=== PATIENT | male | born 1930 | race Caucasian/White ===

== ENCOUNTER 2016-07-23 22:03 | Emergency (ER) | payer MEDICARE ==
[2016-07-23 22:47] VITALS: BP 152/77
[2016-07-23] MEDS ORDERED: Ketorolac 60 MG/2 ML SDV IM ONE (23:24)
[2016-07-23] MEDS ORDERED: Cyclobenzaprine 10 MG Tab PO ONE (23:25)
--- NOTE | 2016-07-23 23:25 | EDM.PDOC ---
ED HPI GENERAL MEDICAL PROBLEM - General Chief Complaint: General Stated Complaint: PAIN IN BACK OF NECK Time Seen by Provider: 07/23/16 23:25 Source of Information: Reports: Patient, Family History Limitations: Reports: No limitations - History of Present Illness INITIAL COMMENTS - FREE TEXT/NARRATIVE: pt wokeup wih severe neck pain. If he lies still he is ok otherwise he has severe sharp pain. Onset: today, other ( Pt woke up with the pain, ) Duration: Hour(s):, Waxing/waning Location: Reports: neck Quality: Reports: Sharp, Stabbing Associated Symptoms: Reports: other (pt has no pain going down the arms. ) neck Pain Score (Numeric/FACES): 10 - Related Data Allergies Allergy/AdvReac Type Severity Reaction Status Date / Time menthol Allergy Rash Verified 07/23/16 23:00 Home Meds: Home Meds Metoprolol Tartrate [Lopressor] 12.5 mg PO DAILY 02/01/14 [History] atorvaSTATin [Lipitor] 10 mg PO DAILY 02/01/14 [History] Aspirin [Jina Chewable Aspirin] 1 tab PO DAILY 10/23/14 [History] Sennosides [Senna] 8.6 mg PO DAILY PRN 10/23/14 [History] Warfarin [Coumadin] 1 tab PO ASDIRECTED 10/23/14 [History] Past Medical History HEENT History: Reports: Cataract, Macular degeneration Cardiovascular History: Reports: High cholesterol, ID Other Cardiovascular History: aoritc valve repair, patched valve Respiratory History: Reports: None Musculoskeletal History: Reports: None Neurological History: Reports: None Oncologic (Cancer) History: Reports: None - Past Surgical History HEENT Surgical History: Reports: Eye surgery, Naso-sinus surgery Cardiovascular Surgical History: Reports: Coronary artery stent, Valve replacement GI Surgical History: Reports: Hernia, inguinal, Hernia repair/other Male Surgical History: Reports: None Social & Family History - Tobacco Use Smoking Status *Q: Former Smoker Years of Tobacco use: 23 Used Tobacco, but Quit: Yes Month Tobacco Last Used: 1974 Second Hand Smoke Exposure: No - Caffeine Use Caffeine Use: Reports: Coffee - Alcohol Use Days Per Week of Alcohol Use: 7 Number of Drinks Per Day: 1 Total Drinks Per Week: 7 - Recreational Drug Use Recreational Drug Use: No ED ROS GENERAL - Review of Systems Review Of Systems: See Below Constitutional: Reports: no symptoms HEENT: Reports: No symptoms Respiratory: Reports: No Symptoms Cardiovascular: Reports: No symptoms Endocrine: Reports: no symptoms GI/Abdominal: Reports: No symptoms : Reports: no symptoms Musculoskeletal: Reports: other ( severe pain in the cervical spine. ) Skin: Reports: no symptoms Neurological: Reports: No Symptoms ED EXAM, GENERAL - Physical Exam Exam: See Below Free Text/Narrative:: Pt arrived with pain the post cervical area more on the rt than the left. Exam Limited By: No limitations General Appearance: alert, anxious, moderate distress Ears: normal TMs Nose: normal inspection Throat/Mouth: Normal inspection Head: atraumatic Neck: other (marked discomfort in the cervical spine. Pt has alot of muscle spasm present, very tender to palpate. ) Respiratory/Chest: no respiratory distress Cardiovascular: regular rate, rhythm GI/Abdominal: soft, non tender (Male) Exam: Deferred Rectal (Males) Exam: Deferred Back Exam: normal inspection Extremities: normal inspection Course - Vital Signs Last Recorded V/S: Last Vital Signs Temp 36.6 C 07/23/16 23:13 Pulse 76 07/23/16 23:13 Resp 16 07/23/16 23:13 BP 152/77 H 07/23/16 23:13 Pulse Ox 97 07/23/16 23:13 - Orders/Labs/Meds Orders: Active Orders 24 hr Category Date Time Status Cervical Spine Min 4V [CR] Stat Exams 07/23/16 23:25 Taken Meds: Medications Discontinued Medications Generic Name Dose Route Start Last Admin Trade Name Freq PRN Reason Stop Dose Admin Cyclobenzaprine HCl 5 mg 07/23/16 23:25 07/23/16 23:45 Flexeril PO 07/23/16 23:26 5 mg ONETIME ONE Administration Ketorolac Tromethamine 30 mg 07/23/16 23:24 07/23/16 23:47 Toradol IM 07/23/16 23:25 30 mg ONETIME ONE Administration - Re-Assessments/Exams Free Text/Narrative Re-Assessment/Exam: 07/23/16 23:55 cervical spine shows marked degenerative changes Departure - Departure Time of Disposition: 00:15 Disposition: Home, Self-Care 01 Condition: fair Clinical Impression: Degenerative arthritis of cervical spine, Muscle spasm Referrals: Manan Brnadon MD [Primary Care Provider] - Forms: ED Department Discharge Care Plan Goals: moist warm packs to the area, gentle stretching exercise, flexeril 5 mg hs, norco 1/2 to 1 tab q8h as needed for pain. appt with Dr Brandon next week. If persistent problems he may need a MRI of the neck - My Orders Last 24 Hours: My Active Orders 07/23/16 23:25 Cervical Spine Min 4V [CR] Stat - Assessment/Plan Last 24 Hours: My Active Orders 07/23/16 23:25 Cervical Spine Min 4V [CR] Stat
[2016-07-24] MEDS ORDERED: Acetaminophen/HYDROcodone 325-5 MG Tab PO ONE (00:18)
--- NOTE | 2016-07-24 08:59 | CR ---
C-spine The cervical vertebrae demonstrate normal alignment. There is degenerative disc space loss at the C3 /4-C5/6 levels. There is severe degenerative facet arthropathy at these levels. Oblique views demons trates severe bony encroachment upon the right C4/5 foramen. Impression: 1. Severe cervical spondylosis.
== END 2016-07-24 00:31 | disposition home or self-care (01) ==
LOC: JP.ED 22:03
DX: M47.812 Spondylosis without myelopathy or radiculopathy, cervical region (principal); E78.00 Pure hypercholesterolemia, unspecified; I25.2 Old myocardial infarction; Z79.01 Long term (current) use of anticoagulants; Z79.82 Long term (current) use of aspirin; Z79.899 Other long term (current) drug therapy; Z88.8 Allergy status to other drugs, medicaments and biological substances; Z87.891 Personal history of nicotine dependence
CPT/HCPCS: 72050; 96372; 99284; A9270; J1885; 99283

== ENCOUNTER 2020-08-11 18:39 | Emergency (ER) | payer MEDICARE ==
--- NOTE | 2020-08-11 19:15 | EDM.PDOC ---
<Eda Madrigal - Last Filed: 08/12/20 00:50> ED HPI GENERAL MEDICAL PROBLEM - General Chief Complaint: Back Pain or Injury Stated Complaint: [facility] Time Seen by Provider: 08/11/20 19:15 Source of Information: Reports: Patient, EMS History Limitations: Reports: No Limitations - History of Present Illness INITIAL COMMENTS - FREE TEXT/NARRATIVE: Geraldo presents today for complaints of low back pain that has been worsening for the past two months. He reports pain is to the low back with radiation to left anterior leg at times. He states he cannot get up to move around because the pain is too bad. He states he got up today, walked around for 45 minutes to try to stretch out and get the pain better. He reports the walking did not he lp. He has tried use of ibuprofen, acetaminophen and steroids for pain and nothing is helping him. He denies bowel/bladder incontinence. He does report weak urine stream and no BM for 3 days. He denies lack of sensation to genitals. He reports he saw the chiropractor on 07/31/2020. He denies fever, chills, nausea, vomiting, recent injury or trauma. lower back Pain Score (Numeric/FACES): 3 - Related Data Allergies Allergy/AdvReac Type Severity Reaction Status Date / Time menthol Allergy Rash Verified 08/11/20 18:59 Home Meds: Home Meds Metoprolol Tartrate [Lopressor] 12.5 mg PO BEDTIME 02/01/14 [History] atorvaSTATin [Lipitor] 10 mg PO BEDTIME 02/01/14 [History] Aspirin [Jina Chewable Aspirin] 81 mg PO DAILY 10/23/14 [History] Sennosides [Senna] 8.6 mg PO BEDTIME PRN 10/23/14 [History] Warfarin [Coumadin] 1.5 - 2 mg PO ASDIRECTED 10/23/14 [History] predniSONE [Prednisone] 20 mg PO ASDIRECTED 08/11/20 [History] Past Medical History HEENT History: Reports: Cataract, Macular Degeneration Cardiovascular History: Reports: High Cholesterol, [place], Other (See Below) Other Cardiovascular History: aoritc valve repair, patched valve Respiratory History: Reports: None Gastrointestinal History: Reports: Chronic Constipation Genitourinary History: Reports: BPH Musculoskeletal History: Reports: Back Pain, Chronic, Other (See Below) Other Musculoskeletal History: compression fractures of lower back Neurological History: Reports: None Hematologic History: Reports: Anticoagulation Therapy Oncologic (Cancer) History: Reports: None - Infectious Disease History Infectious Disease History: Reports: Chicken Pox, Measles, Mumps - Past Surgical History HEENT Surgical History: Reports: Cataract Surgery, Eye Surgery, Naso-Sinus Surgery, Other (See Below) Other HEENT Surgeries/Procedures: surgery for macular degeneration Cardiovascular Surgical History: Reports: Coronary Artery Stent, Valve Replacement GI Surgical History: Reports: Hernia, Inguinal, Hernia Repair/Other Social & Family History - Tobacco Use Tobacco Use Status *Q: Never Tobacco User - Caffeine Use Caffeine Use: Reports: Coffee - Alcohol Use Days Per Week of Alcohol Use: 7 Number of Drinks Per Day: 1 Total Drinks Per Week: 7 - Recreational Drug Use Recreational Drug Use: No ED ROS GENERAL - Review of Systems Review Of Systems: See Below Constitutional: Reports: Weakness (pain from back pain. ) HEENT: Reports: No Symptoms Respiratory: Reports: No Symptoms Cardiovascular: Reports: No Symptoms Endocrine: Reports: No Symptoms GI/Abdominal: Reports: Constipation. Denies: Black Stool, Bloody Stool, Diarrhea, Difficulty Swallowing, Distension, Nausea, Vomiting : Reports: No Symptoms Musculoskeletal: Reports: Back Pain (low back pain with radiation to anterior left leg. ) Skin: Reports: No Symptoms Neurological: Reports: Difficulty Walking (due to pain), Weakness. Denies: Numbness, Tingling Psychiatric: Reports: No Symptoms Hematologic/Lymphatic: Reports: No Symptoms Immunologic: Reports: No Symptoms ED EXAM,LOWER BACK PAIN/INJURY - Physical Exam Exam: See Below Exam Limited By: No Limitations General Appearance: Alert, WD/WN, Moderate Distress Eye Exam: Bilateral Eye: Normal Inspection, PERRL Ears: Normal External Exam, Normal Canal, Hearing Grossly Normal, Normal TMs Nose: Normal Inspection, Normal Mucosa, No Blood Throat/Mouth: Normal Inspection, Normal Lips, Normal Oropharynx, Normal Voice, No Airway Compromise Head: Atraumatic, Normocephalic Neck: Normal Inspection, Supple, Non-Tender, Full Range of Motion. No: Lymphadenopathy (R), Lymphadenopathy (L) Respiratory/Chest: No Respiratory Distress, Lungs Clear, Normal Breath Sounds, No Accessory Muscle Use, Chest Non-Tender. No: Crackles, Rales, Rhonchi, Wheezing Cardiovascular: Normal Peripheral Pulses, Regular Rate, Rhythm, No Edema, No Gallop, No Murmur, No Rub GI/Abdominal: Normal Bowel Sounds, No Organomegaly, No Distention, No Mass, Tender (generalized). No: Guarding, Rigid, Rebound, Hernia, Mass Back Exam: Decreased Range of Motion, Muscle Spasm, Paraspinal Tenderness. No: CVA Tenderness (R), CVA Tenderness (L), Vertebral Tenderness Extremities: Normal Inspection, Normal Range of Motion, Non-Tender, No Pedal Edema, Normal Capillary Refill Neurological: Alert, Normal Mood/Affect, Normal Dorsiflexion, No Motor/Sensory Deficits, Oriented x 3, Straight Leg Raise (L), Difficulty Walking. No: Tremor, Saddle Anesthesia Psychiatric: Normal Affect, Normal Mood Skin Exam: Warm, Dry, Intact, Normal Color, No Rash Lymphatic: No Adenopathy Course - Orders/Labs/Meds Labs: Patient lab work reviewed. Pain continues, fentanyl 50mcgs IV, followed by 100mcgs IV. - Radiology Interpretation Free Text/Narrative:: CT lumbar spine without contrast shows moderate to severe compression fracture L3, favored to be recent with mild retropulsion producing mild sinal stenosis. Severe compression fracture of L2, favored to be chronic, with mild retropulsion producing mild spinal stenosis. Mild compression fracture of the superior endplate of L1, favored to be chronic. Mild spinal stenosis at L4-5 due to spondylosis. Patient and his family notified of findings. No open beds here at [facility]. They would like [facility] contacted for further care. [phone] [facility] contacted, CT images pushed. They will return call once reviewed. - Re-Assessments/Exams Free Text/Narrative Re-Assessment/Exam: 08/11/20 22:17 Patient reports pain as 5/10 when laying still and flat. 08/11/20 22:49 [facility] [address]. Eaton telephoned back, reports no surgical or acute emergency. Patient can present to [facility] [address] for a brace tomorrow via private vehicle. Patient and his family notified, they request Free Text/Narrative Re-Assessment/Exam: 08/11/20 23:05 [facility] contacted for possible transfer due to pain, difficulty with mobility, compression fracture. 08/12/20 00:03 Dr. Thomas [facility] telephoned back, reports no acute findings per CT scan, advised to keep patient in the emergency room until morning and complete an MRI to determine acute need then fit patient for over the shelf brace. 08/12/20 00:16 Dr. Gupta returned telephone call from [facility], she will review information once faxed to [phone]. Patient straight cathed, drained 800 ml urine. UA sent. 08/12/20 00:50 Patient reports pain is slightly better, information faxed to [facility] for review. Dr. Cruz provided report, he assumes care of patient. Departure - Departure Disposition: DC/Tfer to Other 70 Condition: Fair Clinical Impression: Compression fracture of L3 vertebra, Compression fracture of L2 vertebra with delayed healing, Compression fracture of L1 vertebra, Spinal stenosis at L4-L5 level - Discharge Information Referrals: PCP,None [Primary Care Provider] - Forms: ED Department Discharge Care Plan Goals: Dr. Fay of the [facility] currently accepted the patient for transfer. He will be transferred by EMS. Sepsis Event Note (ED) - Evaluation Sepsis Screening Result: No Definite Risk - Assessment/Plan Assessment:: moderate to severe compression fracture L3, favored to be recent with mild retropulsion producing mild sinal stenosis. Severe compression fracture of L2, favored to be chronic, with mild retropulsion producing mild spinal stenosis. Mild compression fracture of the superior endplate of L1, favored to be chronic. Mild spinal stenosis at L4-5 due to spondylosis. <Maximilian Cruz - Last Filed: 08/12/20 06:55> Course - Vital Signs Last Recorded V/S: Last Vital Signs Temp 96.4 F L 08/12/20 01:33 Pulse 78 08/12/20 01:33 Resp 16 08/12/20 01:33 BP 158/73 H 08/12/20 01:33 Pulse Ox 95 08/12/20 01:33 - Orders/Labs/Meds Labs: Laboratory Tests 08/11/20 08/11/20 08/12/20 Range/Units 20:22 20:22 00:18 WBC 11.5 H (4.5-11.0) K/uL RBC 4.55 (4.30-5.90) M/uL Hgb 13.5 D (12.0-15.0) g/dL Hct 40.2 (40.0-54.0) % MCV 88 (80-98) fL MCH 30 (27-31) pg MCHC 34 (32-36) % Plt Count 236 (150-400) K/uL Neut % (Auto) 89 H (36-66) % Lymph % (Auto) 5 L (24-44) % [place] % (Auto) 6 (2-6) % Eos % (Auto) 0 L (2-4) % Baso % (Auto) 0 (0-1) % Sodium 136 L (140-148) mmol/L Potassium 3.9 (3.6-5.2) mmol/L Chloride 100 (100-108) mmol/L Carbon Dioxide 22 (21-32) mmol/L Anion Gap 17.9 H (5.0-14.0) mmol/L BUN 21 H D (7-18) mg/dL Creatinine 0.9 (0.8-1.3) mg/dL Est Cr Clr Drug Dosing 48.91 mL/min Estimated GFR (MDRD) > 60 (>60) Glucose 115 H (74-106) mg/dL Calcium 8.7 (8.5-10.1) mg/dL Urine Color Yellow (YELLOW) Urine Appearance Clear (CLEAR) Urine pH 8.5 H (5.0-8.0) Ur Specific [place] 1.020 (1.008-1.030) Urine Protein Negative (NEGATIVE) mg/dL Urine Glucose (UA) Negative (NEGATIVE) mg/dL Urine Ketones Negative (NEGATIVE) mg/dL Urine Occult Blood Large H (NEGATIVE) Urine Nitrite Negative (NEGATIVE) Urine Bilirubin Negative (NEGATIVE) Urine Urobilinogen 0.2 (0.2-1.0) EU/dL Ur Leukocyte Esterase Negative (NEGATIVE) Urine RBC 10-20 H (0-5) Urine WBC 0-5 (0-5) Ur Epithelial Cells Not seen Amorphous Sediment Not seen Urine Bacteria Few Urine Mucus Not seen SARS CoV-2 RNA Rapid DES 08/12/20 Range/Units 01:00 WBC (4.5-11.0) K/uL RBC (4.30-5.90) M/uL Hgb (12.0-15.0) g/dL Hct (40.0-54.0) % MCV (80-98) fL MCH (27-31) pg MCHC (32-36) % Plt Count (150-400) K/uL Neut % (Auto) (36-66) % Lymph % (Auto) (24-44) % [place] % (Auto) (2-6) % Eos % (Auto) (2-4) % Baso % (Auto) (0-1) % Sodium (140-148) mmol/L Potassium (3.6-5.2) mmol/L Chloride (100-108) mmol/L Carbon Dioxide (21-32) mmol/L Anion Gap (5.0-14.0) mmol/L BUN (7-18) mg/dL Creatinine (0.8-1.3) mg/dL Est Cr Clr Drug Dosing mL/min Estimated GFR (MDRD) (>60) Glucose (74-106) mg/dL Calcium (8.5-10.1) mg/dL Urine Color (YELLOW) Urine Appearance (CLEAR) Urine pH (5.0-8.0) Ur Specific [place] (1.008-1.030) Urine Protein (NEGATIVE) mg/dL Urine Glucose (UA) (NEGATIVE) mg/dL Urine Ketones (NEGATIVE) mg/dL Urine Occult Blood (NEGATIVE) Urine Nitrite (NEGATIVE) Urine Bilirubin (NEGATIVE) Urine Urobilinogen (0.2-1.0) EU/dL Ur Leukocyte Esterase (NEGATIVE) Urine RBC (0-5) Urine WBC (0-5) Ur Epithelial Cells Amorphous Sediment Urine Bacteria Urine Mucus SARS CoV-2 RNA Rapid DES Negative Meds: Medications Discontinued Medications Generic Name Dose Route Start Last Admin Trade Name Freq PRN Reason Stop Dose Admin Baclofen 10 mg 08/11/20 22:47 08/11/20 23:29 Baclofen 10 Mg Tab PO 08/11/20 22:48 10 mg ONETIME ONE Administration Fentanyl 50 mcg 08/11/20 19:41 08/11/20 19:54 Fentanyl 100 Mcg/2 Ml Sdv IVPUSH 08/11/20 19:42 50 mcg ONETIME ONE Administration Fentanyl 100 mcg 08/11/20 20:24 08/11/20 20:43 Fentanyl 100 Mcg/2 Ml Sdv IVPUSH 08/11/20 20:25 100 mcg ONETIME ONE Administration Hydromorphone HCl 0.5 mg 08/11/20 23:00 08/11/20 23:29 Hydromorphone 0.5 Mg/0.5 Ml Syringe IVPUSH 08/11/20 23:01 0.5 mg ONETIME ONE Administration Hydromorphone HCl 0.5 mg 08/12/20 02:10 08/12/20 02:26 Hydromorphone 0.5 Mg/0.5 Ml Syringe IVPUSH 08/12/20 02:11 0.5 mg ONETIME ONE Administration Sodium Chloride 1,000 mls @ 150 mls/hr 08/11/20 21:00 08/11/20 20:52 Normal Saline IV 150 mls/hr ASDIRECTED ALEX Administration Departure - Departure Time of Disposition: 01:58 Sepsis Event Note (ED) - Focused Exam Vital Signs: Vital Signs Temp Pulse Resp BP Pulse Ox 08/12/20 01:33 96.4 F L 78 16 158/73 H 95 08/12/20 00:34 96.5 F L 77 18 159/75 H 95 08/11/20 22:44 91 172/87 H 98 08/11/20 20:51 89 15 158/82 H 96 08/11/20 19:00 99.3 F 95 16 146/73 H 99
[2020-08-11] MEDS ORDERED: fentaNYL 100 MCG/2 ML SDV IVPUSH ONE ×2 (19:41→20:24)
[2020-08-11] MEDS ORDERED: Sodium Chloride 0.9% 1,000 ML IV SCH (21:00)
--- NOTE | 2020-08-11 21:05 | CRLCT ---
INDICATION: Back pain. CT LUMBAR SPINE WITHOUT CONTRAST TECHNIQUE: Multidetector axial CT imaging was performed through the lumbar spine, without contrast. Sagittal and coronal reconstructions were generated. FINDINGS: Diffuse osteopenia is present. There are age-indeterminate compression fractures of the lumbar spine, including a mild compression fracture of the superior endplate of L1 which is favored to be chronic, a severe compression fracture of L2 which is favored to be chronic, and a moderate to severe compression fracture of the superior endplate of L3 which is favored to be recent. The L2 and L3 fractures have associated mild retropulsion resulting in mild spinal stenosis at both of these levels. There is also mild spinal stenosis at L4-5 due to spondylosis. Paravertebral soft tissues are unremarkable. There are aortoiliac atherosclerotic calcifications. The prostate is enlarged and indents the bladder floor. Moderate distention of the bladder is present. IMPRESSION: 1. Moderate to severe compression fracture of L3, favored to be recent, with mild retropulsion producing mild spinal stenosis. 2. Severe compression fracture of L2, favored to be chronic, with mild retropulsion producing mild spinal stenosis. 3. Mild compression fracture of the superior endplate of L1, favored to be chronic. 4. Mild spinal stenosis at L4-5 due to spondylosis. 5. Diffuse osteopenia. SEVERO GUTIERREZ MD [employer] Dictated by Ritesh Gutierrez MD @ 08/11/2020 9:02:27 PM Dictated by: Ritesh Gutierrez MD @ 08/11/2020 21:03:00 (Electronically Signed)
[2020-08-11] MEDS ORDERED: Baclofen 10 MG Tab PO ONE (22:47)
[2020-08-11] MEDS ORDERED: HYDROmorphone 0.5 MG/0.5 ML Syringe IVPUSH ONE (23:00)
[2020-08-12 01:35] VITALS: BP 158/73; PULSE 78
[2020-08-12] MEDS ORDERED: HYDROmorphone 0.5 MG/0.5 ML Syringe IVPUSH ONE (02:10)
== END 2020-08-12 02:42 | disposition other institution (70) ==
LOC: JP.ED 18:39
DX: S32.030A Wedge compression fracture of third lumbar vertebra, initial encounter for closed fracture (principal); S32.010A Wedge compression fracture of first lumbar vertebra, initial encounter for closed fracture; S32.020G Wedge compression fracture of second lumbar vertebra, subsequent encounter for fracture with delayed healing; M48.061 Spinal stenosis, lumbar region without neurogenic claudication; Z79.899 Other long term (current) drug therapy; Z79.82 Long term (current) use of aspirin; Z88.8 Allergy status to other drugs, medicaments and biological substances; E78.00 Pure hypercholesterolemia, unspecified; I25.2 Old myocardial infarction; Z79.01 Long term (current) use of anticoagulants; Z20.822 Contact with and (suspected) exposure to COVID-19; X58.XXXA Exposure to other specified factors, initial encounter
CPT/HCPCS: 36415; 72131; 80048; 81001; 85025; 96374; 96375; 96376; 99284; 99285; A9270; J1170; J3010; J7030; U0002